=== PATIENT | female | born 1985 | race Caucasian/White ===

== ENCOUNTER 2022-03-11 19:00 | Emergency (ER) | payer BC | END 2022-03-11 22:01 | disposition home or self-care (01) | LOC: JP.ED 19:00 | DX: O99.892 Other specified diseases and conditions complicating childbirth (principal); R10.30 Lower abdominal pain, unspecified; Z3A.15 15 weeks gestation of pregnancy; Z79.82 Long term (current) use of aspirin; Z79.899 Other long term (current) drug therapy | CPT/HCPCS: 81001; 99281; 99283 ==